=== PATIENT | male | born 1995 | race Caucasian/White ===

== ENCOUNTER 2016-11-18 23:44 | Emergency (ER) | payer BC ==
[~2016-11-18] VITALS: Ht 177.8 cm; Wt 61.2 kg
--- NOTE | 2016-11-18 23:45 | NUR ---
PT WALKED INTO ER WITH MOTHER AT SIDE, C/O BLURRY VISION SINCE SAT RT EYE REDNESS TODAY.. PT IS ALERT, ORIENTED X 4, NO RESP DISTRESS NOTED OR REPORTED... MD AT BEDSIDE...
[2016-11-19] MEDS ORDERED: SULFACETAMIDE SOD 10% OPHT DR 15 ML BOTTLE OP ONE (00:15)
[2016-11-19] MEDS ORDERED: FLUORESCEIN SODIUM 1 MG STRIP ONE (00:15)
[2016-11-19] MEDS ORDERED: FLUORESCEIN SODIUM 1 MG STRIP OP ONE (00:15)
[2016-11-19] MEDS ORDERED: SULFACETAMIDE SOD 10% OPHT DR 15 ML BOTTLE ONE (00:25)
--- NOTE | 2016-11-19 00:25 | NUR ---
Patient discharged to home in stable conditon. Written and verbal after care instructions given. Patient verbalizes understanding of instructions. Ambulated from Er with stable gait. All belongings with patient.
[2016-11-19 00:26] VITALS: BP 128/70
== END 2016-11-19 00:28 | disposition home or self-care (01) ==
LOC: ER 23:50
DX: S05.01XA Injury of conjunctiva and corneal abrasion without foreign body, right eye, initial encounter (principal); X58.XXXA Exposure to other specified factors, initial encounter; Y93.89 Activity, other specified; Y99.8 Other external cause status; Y92.89 Other specified places as the place of occurrence of the external cause
CPT/HCPCS: A4663